=== PATIENT | male | born 1965 | race Two or more races ===

== ENCOUNTER 2020-04-15 10:45 | Inpatient (IN) | payer OTHER ==
[~2020-04-15] VITALS: Ht 185.4 cm; Wt 134.7 kg
[2020-04-15] MEDS ORDERED: ADULT LOW DOSE81 M1 PO (15:57)
[2020-04-15] MEDS ORDERED: DIOVAN HCT 1601 EAC1 PO (15:57)
[2020-04-15] MEDS ORDERED: LIPITOR40 M1 PO (15:57)
[2020-04-16] MEDS ORDERED: IRBESARTAN-HCT1 EAC1 PO (14:39)
[2020-04-23] MEDS ORDERED: AMLODIPINE BESYL5 MG (08:09)
[2020-04-25] MEDS ORDERED: PERCOCET 5-3251 EACH PO (07:23)
[2020-04-25] MEDS ORDERED: DUI500 PO (07:23)
[2020-04-25] MEDS ORDERED: ELIQUIS2.5 MG PO (07:23)
== END 2020-04-25 17:59 | DRG 470 ==
LOC: SURH 04-22 09:36 → O/R 04-22 09:36 → EDBD 04-22 10:45 → SURH 04-22 10:45 → SURG 04-22 20:58 → SURH 04-22 21:41
PROVIDERS: ADMIT Orthopaedic Surgery; ATTEND Orthopaedic Surgery
PROC: 0SRD0J9 Replacement of Left Knee Joint with Synthetic Substitute, Cemented, Open Approach (ICD-10-PCS; principal; 2020-04-22 13:30)
DX: M17.12 Unilateral primary osteoarthritis, left knee (principal); I69.354 Hemiplegia and hemiparesis following cerebral infarction affecting left non-dominant side; D62 Acute posthemorrhagic anemia; E66.8 Other obesity; I10 Essential (primary) hypertension; Z68.39 Body mass index [BMI] 39.0-39.9, adult